=== PATIENT | male | born 1960 | race Caucasian/White ===

== ENCOUNTER 2020-01-04 17:37 | Emergency (ER) | payer SELFPAY ==
[~2020-01-04] VITALS: Ht 160 cm; Wt 67.1 kg
[2020-01-04 17:48] VITALS: BP 161/110
--- NOTE | 2020-01-04 17:48 | NUR ---
pt denies chest pain
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
--- NOTE | 2020-01-04 18:25 | NUR ---
pt resting in bed, side rail x1
[2020-01-04] MEDS ORDERED: KETOROLAC 30 MG/ML VIAL IM ONE (18:40)
[2020-01-04] MEDS ORDERED: cloNIDine 0.1 MG TAB PO ONE (18:40)
--- NOTE | 2020-01-04 19:19 | NUR ---
report given to kojo whiting for continuity of care
--- NOTE | 2020-01-04 19:20 | NUR ---
REPORT RECIVED FROM CARMELA CARDONA. CONTINUATION OF CARE.
[2020-01-04 19:55] VITALS: BP 147/94
--- NOTE | 2020-01-04 19:55 | NUR ---
Patient discharged with v/s stable. Written and verbal after care instructions given and explained. Patient alert, oriented and verbalized understanding of instructions. Ambulatory with steady gait. All questions addressed prior to discharge. ID band removed. Patient advised to follow up with PMD. Rx of naproxen, flexeril given. Patient educated on indication of medication including possible reaction and side effects. Opportunity to ask questions provided and answered.
== END 2020-01-04 19:55 | disposition home or self-care (01) ==
LOC: MED 17:37
DX: S16.1XXA Strain of muscle, fascia and tendon at neck level, initial encounter (principal); I10 Essential (primary) hypertension; V43.52XA Car driver injured in collision with other type car in traffic accident, initial encounter; Y93.89 Activity, other specified; Y92.89 Other specified places as the place of occurrence of the external cause; Y99.8 Other external cause status
CPT/HCPCS: 72040; 96372; 99283; J1885